=== PATIENT | male | born 1935 | race Caucasian/White ===

== ENCOUNTER → 2016-04-18 | Outpatient (CLI) | payer OTHER | LOC: MMPC 11:11 | PROVIDERS: ATTEND Internal Medicine | DX: J44.9 Chronic obstructive pulmonary disease, unspecified (principal); I73.9 Peripheral vascular disease, unspecified; Z12.5 Encounter for screening for malignant neoplasm of prostate; L57.0 Actinic keratosis; Z02.89 Encounter for other administrative examinations | CPT/HCPCS: 17000 ×2; 17003 ×2; 99214; G0463 ==

== ENCOUNTER → 2016-06-27 | Outpatient (CLI) | payer OTHER ==
[2016-06-27 09:47] LABS: BASOPHILS # (AUTO) 0.04 10*3/UL; BASOPHILS % (AUTO) 0.5 % (0-1); EOSINOPHILS # (AUTO) 0.27 10*3/UL; EOSINOPHILS % (AUTO) 3.2 % (0-8); HEMATOCRIT 50.7 % (42.0-52.0); HEMOGLOBIN 16.7 g/dL (14.0-18.0); LYMPHOCYTES # (AUTO) 1.13 10*3/uL; MEAN CORPUSCULAR HEMOGLOBIN 31.3 PG (27-31); MEAN CORPUSCULAR HGB CONC 32.9 g/dL (33-37); MEAN CORPUSCULAR VOLUME 95.1 FL (80-90); MEAN PLATELET VOLUME 11.3 FL (7.4-12.2); MONOCYTES # (AUTO) 0.85 10*3/UL (0.3-0.8); MONOCYTES % (AUTO) 10.2 % (5-15); NEUTROPHILS # (AUTO) 6.01 10*3/UL; NEUTROPHILS % (AUTO) 72.3 % (50-80); RED BLOOD COUNT 5.33 10^6/uL (4.70-6.10)
[2016-06-27 09:53] LABS: BUN/CREATININE RATIO 28.75 (6-20); CALCIUM 9.5 mg/dL (8.7-10.7); CHOL/HDL RATIO 3.9 RATIO (0-4.0); LDL CHOLESTEROL,CALCULATED 133.2 mg/dL; SERUM ALBUMIN 4.2 g/dL (3.5-4.8)
[2016-06-27 09:54] LABS: PLATELET MORPHOLOGY COMMENT NORMAL MORPHOLOGY (NORM); RBC MORPHOLOGY COMMENT NORMAL MORPHOLOGY (NORM); WBC MORPHOLOGY COMMENT NORMAL MORPHOLOGY (NORM)
== END ==
LOC: LAB 09:23
PROVIDERS: ATTEND Internal Medicine
DX: I73.9 Peripheral vascular disease, unspecified (principal); J44.9 Chronic obstructive pulmonary disease, unspecified; K21.9 Gastro-esophageal reflux disease without esophagitis; Z12.5 Encounter for screening for malignant neoplasm of prostate
CPT/HCPCS: 36415; 80053; 80061; 84443; 85025; G0103

== ENCOUNTER 2016-07-09 14:31 | Inpatient (IN) | payer OTHER ==
[2016-07-09] MEDS ORDERED: FUROSEMIDE 10 MG/1 ML - 4 ML IVP ONE (14:44)
[2016-07-09] MEDS: NORMAL SALINE 10 ML SYRINGE FLUSH IVP PRN ×2 (14:45→15:36)
--- NOTE | 2016-07-09 14:50 | PDOC ---
Dyspnea HPI - General Chief Complaint: Respiratory Complaint Stated Complaint: SHORTNESS OF BREATH Date Seen by Provider: 07/09/16 Time Seen by Provider: 14:46 - History of Present Illness Initial Comments: Patient's very nice 81-year-old gentleman who has unfortunately been having increasing shortness of breath and some dyspnea over last week or 2 ends up presenting to the urgent care today had initial evaluation which included some labs and chest x-ray and EKG. EKG shows an old AL at some point and chest x- ray shows new onset cardiomegaly and CHF with a possible infiltrate. Remainder of blood work is consistent with a new diagnosis of CHF given a BNP of over 800. He also has elevated d-dimer as well. He was sent here to the emergency department for evaluation of these issues. - Patient Home Medications Home Medications: Home Medications Oxygen (O2) 1 l INH BEDTIME #3 unit 08/05/13 Hydrocodone Bit/Acetaminophen [[place] 7.5-325 Tablet] 1 tab PO Q4HWA PRN #60 tab 04/18/16 Levalbuterol Tartrate [Xopenex Hfa] 2 puff INH Q4-6H PRN #1 inh 04/18/16 Umeclidinium [place] [Incruse Ellipta] 62.5 mcg INH QD #3 inhaler 04/18/16 Calcium Carbonate/Vitamin D3 [Calcium 600-Vit D3 800 Tab] 1 cap PO DAILY Fluticasone/Salmeterol [Advair 500-50 Diskus] 1 puff INH DAILY 07/09/16 - Patient Allergies Allergies/Adverse Reactions: Allergies Allergy/AdvReac Type Severity Reaction Status Date / Time No Known Allergies Allergy Verified 07/09/16 14:46 Past Medical History - heen HEENT History: Cataracts, Deaf, Other (please comment) Additional HEENT History: deaf right ear, WEARS GLASSES Cardiovascular History: Denies History Respiratory History: COPD, Sleep Apnea, Home Oxygen Use Additional Respiratory History: RIGHT LUNG CA. 3L NIGHT Genitourinary History: Kidney Stones Endocrine History: Denies History Musculoskeletal History: Arthritis, Back Pain, Back Injury, Muscle Weakness, Limited ROM, Joint Pain, Osteoarthritis, Other (please comment) Prosthesis or Implant: No Additional Musculoskeletal History: spinal fusion 10-16-11 and 10-18-11 Neurological History: Denies History, Other (please comment) Additional Neurological History: DECREASED SENSATION TO LEFT LEG DUE TO MAJOR BACK SURGERY Blood Disorders: Denies History Psychiatric History: Denies History History of Sexually Transmitted Diseases: No Cancer History: Lung, Other (please comment) Cancer Treatment / Date(s) of Treatment: chemo and radiation of rt lung 10 YEARS AGO, radiation of lip History of MDRO: No History of Other Communicable Diseases: No Alcohol Use: Occasionally Substance Use Type: None Previous Surgical History: Yes Type / Date of Surgery: RIGHT TOTAL HIP/BACK X2/LIP EXCISION +CA/ SKIN ABOVE LEFT EYE EXCISION +CA/APPY Anesthesia Reactions: No Malignant Hyperthermia: No Significant Family History: Cancer Past Medical History Reviewed: Reviewed - No Changes ROS - Limitations ROS Limitations: No Limitations [place]: REPORTS: Denies Symptoms Neurological: REPORTS: Denies Neuro Symptoms Gastrointestinal: REPORTS: Denies GI Symptoms Musculoskeletal: REPORTS: Denies MS Symptoms Dyspnea Physical Exam - General Appearance General Appearance: REPORTS: Alert, Cooperative, No Acute Distress - HEENT HEENT: POSITIVE: Head Inspection Nml - Neck Neck: REPORTS: Normal Inspection - Respiratory Respiratory: REPORTS: Other (Bilateral crackles) - Cardiovascular Cardiovascular: REPORTS: Regular Rate and Rhythm, Heart Sounds Normal - Abdomen Abdomen: Soft: (All Quadrants), Normal Bowel Sounds: (All Quadrants), Denies Tenderness: (All Quadrants) - Skin Skin: REPORTS: Intact, Normal For Race - Extremities Additional Extremities Details: Mild bilateral lower extremity edema - Neurological / Psychological Neurological: POSITIVE: Affect Apporpriate, Oriented X3 Dyspnea Progress - Results Reviewed by me Xrays/CTs/US Reviewed by me: Yes Radiology Findings: New-onset congestive heart failure with cardiomegaly also some bibasilar possible pneumonia and a right-sided spiculated mass likely cancerous. Lab Results Reviewed: Yes Lab Results:: Labs show an elevated BNP - Patient's Progress MDM / ED Course: This patient has elevated BNP also new cardiomegaly and pulmonary edema. This really fits the picture for acute congestive heart failure. He does not have evidence of pulmonary embolism. I have discussed with the patient and with the attending hospitalist that he does have a new cancerous mass in his right chest patient will plan to see his oncologist at interval for this. He also has some changes in the bilateral bases consistent with a pneumonia versus atelectasis or scarring. He does not have fever has not had increased sputum production or cough likely not an acute pneumonia. Will defer to hospitalist as to whether or not antibiotics and cultures are desired. Patient Care Time - Estimated PCT Patient Care Time (In Minutes): 40 Vital Signs - Recent Vital Signs Vital Signs: Vital Signs (Last 8 hours) Temp Pulse Resp BP Pulse Ox 07/09/16 14:49 98.6 F 111 H 20 144/81 73 Discharge Clinical Impression: Lung mass Acute CHF Qualifiers: Congestive heart failure type: unspecified congestive heart failure type Qualifier Code: (I50.9) Heart failure, unspecified Discharge Disposition: Admit to Inpatient Condition: Fair Follow Up With: NAVJOT MONTENEGRO [Primary Care Provider] - Date Decision to Admit to Inpatient: 07/09/16 Time Decision to Admit to Inpatient: 16:32
--- NOTE | 2016-07-09 16:31 | DI ---
CT ANGIOGRAM OF THE CHEST, 07/09/2016 2:43 PM : Clinical History: Shortness of breath. Elevated D-dimer test. Previous Exam: 12/10/2007. Scans are performed from the base of the neck to the lower lung bases following IV administration of 65 mL of Isovue 300. Proprietary automated bolus tracking software was not used to verify the timing of the injection. The base of the neck and thoracic inlet are normal. There are no abnormal axillary, supraclavicular, mediastinal, or hilar nodes. There is cardiomegaly with right heart dilatation. Calcifications are pr esent in the aortic valve. Coronary artery calcifications are present in the proximal and middle thir ds of the LAD, sterile the right coronary artery, and the proximal portion of the left circumflex art darlin. There is marked pulmonary arterial hypertension without evidence of pulmonary embolism or pulmon grant embolism with infarction. There is extensive bullous emphysema and there is marked increased in t he amount of pulmonary vessels in spite of emphysema and this would be consistent with CHF. Interstit ial Malvin A and the Malvin B lines are present in these can either be secondary to acute CHF or more likely a combination of CHF and underlying chronic interstitial pulmonary fibrosis. In the anterior segment of the right upper lobe is a 25 x 30 x 30 mm noncalcified bilobed spiculated lesion consisten t with carcinoma. This is new since the previous exam. There are bilateral lower lobe infiltrates wit h bronchiectasis and this is consistent with chronic aspiration pneumonia. Both adrenal glands and th e spleen as well as the visualized portions of the liver and pancreas are normal. This patient has un dergone extensive spine surgery involving the lower thoracic spine and the lumbar spine. READIN. There is pulmonary arterial hypertension without evidence of pulmonary embolism or pulmonary embo lism with infarction. 2. There is marked increased numbers of pulmonary vessels in this patient may have CHF with acute co r pulmonale. 3. There is a new 25 x 30 x 30 mm spiculated noncalcified bilobed lesion in the anterior segment of the right upper lobe consistent with carcinoma. 4. Bilateral lower lobe infiltrates with bronchiectasis consistent with chronic aspiration pneumonia . 5. Extensive bullous emphysema with Malvin A and Malvin B lines. These interstitial lines are probab ly secondary to a combination of chronic interstitial pulmonary fibrosis with acute CHF.
--- NOTE | 2016-07-09 17:06 | PDOC ---
History and Physical - History of Present Illness History of Present Illness: This very nice 81-year-old gentleman with past medical history of COPD and remote lung cancer and years ago he had radiation and chemotherapy heavy smoker presented to the urgent care clinic with shortness of breath which has been getting worse over the last 2 days also has increased sleep and decreased appetite after initial evaluation he was sent to the ER where he was diagnosed with the acute CHF, cor pulmonale, and bilateral lower lobe infiltrates on CT scan but no pulmonary embolus discussed the case with the family members and patient he denies chest pain nausea or vomiting Past Medical History Medical History: Cataracts, Deaf,deaf right ear, WEARS GLASSES,COPD, Sleep Apnea , Home Oxygen. Arthritis, Back Pain, Back Injury, Muscle Weakness, Limited ROM , Joint Pain, chemo and radiation of rt lung 10 YEARS AGO,. . Surgical History: DECREASED SENSATION TO LEFT LEG DUE TO MAJOR BACK SURGERYspinal fusion 10-16-11 and 10-18-11, Tobacco Use: Former Smoker Substance Use Type: None Medication / Allergies Home Medications: Home Medications Medication Instructions Recorded Confirmed Type Oxygen (O2) 1 l INH BEDTIME #3 unit 08/05/07/09/16 History Hydrocodone Bit/Acetaminophen 1 tab PO Q4HWA PRN #60 tab 04/18/16 07/09/16 Clinic [[place] 7.5-325 Tablet] Levalbuterol Tartrate [Xopenex Hfa] 2 puff INH Q4-6H PRN #1 inh 04/18/16 Clinic Umeclidinium [place] [Incruse 62.5 mcg INH QD #3 inhaler 04/18/16 07/09/16 Clinic Ellipta] Calcium Carbonate/Vitamin D3 1 cap PO DAILY 07/09/16 07/09/16 History [Calcium 600-Vit D3 800 Tab] Fluticasone/Salmeterol [Advair 1 puff INH DAILY 07/09/16 07/09/16 History 500-50 Diskus] Allergies/Adverse Reactions: Allergies Allergy/AdvReac Type Severity Reaction Status Date / Time No Known Allergies Allergy Verified 07/09/16 17:17 Review of Systems - Review of Systems All Systems: Reviewed & No Additional Complaints Except as Stated - Respiratory Respiratory: REPORTS: Cough, Dyspnea with Exertion - Cardiovascular Cardiovascular: REPORTS: Edema, Orthopnea. DENIES: Chest Pain - Gastrointestinal Gastrointestinal / Abdominal: DENIES: Negative System Review, Nausea, Vomiting, Diarrhea, Constipation, Abdominal Pain, Bloody Stool, Poor Appetite, Heartburn, Regurgitation, Bloating, Lactose Intolerance, Melena, Bright Red Blood Per Rectum, Other, See HPI Exam - General General Appearance: POSITIVE: No Acute Distress, Cooperative - Head Head Exam: POSITIVE: Normal Inspection, Normocephalic, Atraumatic - Respiratory Respiratory Exam: POSITIVE: Clear to Auscultation - Bilaterally, Breathing Non Labored, Normal To Percussion, Decreased Breath Sounds, Crackles - Cardiovascular Cardiovascular Exam: POSITIVE: RRR, No Murmur, No Clicks, No Gallops - GI/Abdominal GI/Abdominal Exam: POSITIVE: Non Tender, Non Distended, Soft - Extremities Extremities Exam: POSITIVE: No Clubbing Present, No Edema Present, No Cyanosis Present, +1 Edema - Back Back Exam: POSITIVE: Normal Inspection - Neurological Neurological Exam: POSITIVE: Alert, Oriented x 3, CN II-XII Intact, No Facial Droop, Speech Intact / Clear, Moves All Extremities Equally - Psychiatric Psychiatric Exam: POSITIVE: Normal Affect - Integumentary Integumentary Exam: POSITIVE: Normal Color Assessment and Plan - Patient Problems (1) Acute CHF Current Visit: Yes Status: Acute Qualifiers: Congestive heart failure type: unspecified congestive heart failure type Qualifier Code(s): (I50.9) Heart failure, unspecified (2) Lung mass Current Visit: Yes Status: Acute (3) Pneumonia Current Visit: Yes Status: Acute (4) Cor pulmonale Current Visit: Yes Status: Acute (5) Pulmonary hypertension Current Visit: Yes Status: Acute - Assessment / Plan Additional Assessment/Plan Details: #1 acute CHF most likely cor pulmonale with right-sided heart pressures as per CT scan. Negative troponin elevated BNP diuresed with IV Lasix 40 IV twice a day he did receive 1 dose in the ER will insert Cheung catheter for acute output echo in a.m. #2 bilateral pulmonary infiltrates consistent with an aspiration pneumonia as called it we will get a swallow study in a row he does have a left shift will treat with ceftriaxone and Clinda #[address] most likely a carcinoma of the lung we will discuss further what he wants done with this mass most likely will need to be biopsied #4. co PD exacerbation already on home oxygen 3 L at night #5 DVT prophylaxis with Lovenox 40 subcutaneous daily Photo / Body Diagrams - Uploaded Photos Uploaded Photos:
[2016-07-09] MEDS ORDERED: NORMAL SALINE 10 ML SYRINGE FLUSH IVP PRN (17:16)
[2016-07-09] MEDS ORDERED: Clindamycin 900mg (Premix) 900 MG in Dextrose 1 BAG IV ONE (17:16)
[2016-07-09] MEDS ORDERED: LIDOCAINE W/ SODIUM BICARB 0.5 ML SYR SUBD PRN (17:16)
--- NOTE | 2016-07-09 17:48 | EKG ---
[address] [place] [id number] Measurements Intervals [place] Rate: 88 P: 75 [place]: 170 QRS: 266 QRSD: 166 T: 58 QT: 403 QTc: 448 Interpretive Statements SINUS RHYTHM MARKED RIGHT AXIS DEVIATION ,POSSIBLE RVH RIGHT BUNDLE BRANCH BLOCK Compared to ECG 07/09/2016 13:47:16 Right-axis deviation now present Myocardial infarct finding no longer present Electronically Signed On 07-09-16 20:33:38 MDT by Brayan Neely [id number]
[2016-07-09] MEDS: cefTRIAXone Inj 2 GM in Sodium Chloride 0.9% 100 ML IV SCH (19:15)
[2016-07-10 05:34] LABS: BASOPHILS # (AUTO) 0.08 10*3/UL; EOSINOPHILS # (AUTO) 0.25 10*3/UL; EOSINOPHILS % (AUTO) 3.1 % (0-8); HEMATOCRIT 43.8 % (42.0-52.0); HEMOGLOBIN 14.4 g/dL (14.0-18.0); LYMPHOCYTES # (AUTO) 0.82 10*3/uL; MEAN CORPUSCULAR HEMOGLOBIN 31.4 PG (27-31); MEAN CORPUSCULAR HGB CONC 32.9 g/dL (33-37); MEAN CORPUSCULAR VOLUME 95.4 FL (80-90); MEAN PLATELET VOLUME 10.8 FL (7.4-12.2); MONOCYTES # (AUTO) 0.99 10*3/UL (0.3-0.8); MONOCYTES % (AUTO) 12.1 % (5-15); NEUTROPHILS # (AUTO) 5.94 10*3/UL; NEUTROPHILS % (AUTO) 72.6 % (50-80); RED BLOOD COUNT 4.59 10^6/uL (4.70-6.10)
[2016-07-10 05:35] LABS: BUN/CREATININE RATIO 28.57 (6-20); CALCIUM 8.7 mg/dL (8.7-10.7); PHOSPHORUS 4.1 mg/dl (2.4-4.3); SERUM ALBUMIN 3.2 g/dL (3.5-4.8)
[2016-07-10 05:36] LABS: PLATELET MORPHOLOGY COMMENT NORMAL MORPHOLOGY (NORM); RBC MORPHOLOGY COMMENT NORMAL MORPHOLOGY (NORM); WBC MORPHOLOGY COMMENT NORMAL MORPHOLOGY (NORM)
[2016-07-10] MEDS: FLUTICASONE/SALMETEROL 500/50 UD INHALER INH SCH (07:02)
[2016-07-10] MEDS ORDERED: FUROSEMIDE 10 MG/1 ML - 2 ML VIAL IV SCH (09:00)
[2016-07-10] MEDS: ENOXAPARIN SODIUM 40 MG/0.4 ML SYRINGE SUBCUT SCH (10:03)
[2016-07-10] MEDS: LISINOPRIL 5 MG TABLET PO SCH (10:04)
--- NOTE | 2016-07-10 10:59 | PDOC(PROG) ---
Date and Time of Service: 07/10/2016, 1055 Interval History: No chest pain. No shortness of breath. States that he feels about 50% better than on admission. He is not interested in surgical therapy for lung cancer, but be interested in chemotherapy or radiation or combination thereof, depending on opinions after his pneumonia recovers. He does live in [place] , so he would be interested in trying to arrange an appointment here in [place]. Objective : Data - Labs CBC and BMP: 07/10/16 04:50 07/10/16 04:50 Labs - Last 24 Hours: Laboratory Results 07/09/16 07/10/16 Range/Units 17:28 04:50 WBC 8.18 (4.8-10.8) 10^3/uL RBC 4.59 L (4.70-6.10) 10^6/uL Hgb 14.4 (14.0-18.0) g/dL Hct 43.8 (42.0-52.0) % MCV 95.4 H (80-90) FL MCH 31.4 H (27-31) PG MCHC 32.9 L (33-37) g/dL RDW Std Deviation 48.9 (39-50) fL RDW Coeff of Terri 14.4 (11.5-14.5) % Plt Count 250 (140-350) 10*3/uL MPV 10.8 (7.4-12.2) FL Immature Gran % (Auto) 1.2 (0-5) % Neut % (Auto) 72.6 (50-80) % Lymph % (Auto) 10.0 (10-50) % [place] % (Auto) 12.1 (5-15) % Eos % (Auto) 3.1 (0-8) % Baso % (Auto) 1.0 (0-1) % Immature Gran # (Auto) 0.10 10*3/UL Neut # (Auto) 5.94 10*3/UL Lymph # (Auto) 0.82 10*3/uL [place] # (Auto) 0.99 H (0.3-0.8) 10*3/UL Eos # (Auto) 0.25 10*3/UL Baso # (Auto) 0.08 10*3/UL WBC Morphology Comment Normal morphology (NORM) Plt Morphology Comment Normal morphology (NORM) RBC Morph Comment Normal morphology (NORM) Sodium 139 (135-145) meq/L Potassium 4.0 (3.8-5.2) meq/L Chloride 102 (98-112) meq/L Carbon Dioxide 28 (23-33) meq/L Anion Gap 9 (5-20) BUN 20 (7-22) mg/dL Creatinine 0.7 (0.70-1.50) mg/dL Estimated GFR (>60 ml/min/1.73m(2)) BUN/Creatinine Ratio 28.57 H (6-20) Glucose 89 (78-110) mg/dL Calculated Osmolality 289.0 (267-292) mOsm/kg Calcium 8.7 (8.7-10.7) mg/dL Phosphorus 4.1 (2.4-4.3) mg/dl Magnesium 2.0 (1.6-2.4) mg/dL Total Bilirubin 0.9 (0.3-1.2) mg/dL AST 29 (21-57) IU/L ALT 23 (21-72) IU/L Alkaline Phosphatase 89 (38-126) IU/L Troponin I 0.022 (< 0.040) ng/mL Total Protein 6.5 (6.1-8.0) g/dL Albumin 3.2 L (3.5-4.8) g/dL Globulin 3.3 (2.50-4.10) g/dL Albumin/Globulin Ratio 0.90 L (1.3-2.0) mg/g Objective : Exam - General General Appearance: No Acute Distress, Cooperative Additional General Exam Details: Vital Signs - Last Taken Temperature 98 F 07/10/16 07:39 Pulse Rate 89 07/10/16 07:39 Respiratory Rate 18 07/10/16 07:39 Blood Pressure 142/66 07/10/16 07:39 Pulse Ox 91 07/10/16 07:39 Currently on 3-4 L per nasal cannula. States he is on oxygen at home at night TIME. - Head Head Exam: Normal Inspection, Normocephalic, Atraumatic - Eye Eye Exam: No Scleral Icterus - ENT ENT Exam: Mucous Membranes Moist - Respiratory Respiratory Exam: Breathing Non Labored, Decreased Breath Sounds, Crackles ( Left lower base) - Cardiovascular Cardiovascular Exam: RRR, No Murmur, No Clicks, No Gallops, No Rubs, No JVD - GI/Abdominal GI/Abdominal Exam: Normal Bowel Sounds, Non Tender, Non Distended, Soft - Rectal Rectal Exam: Deferred - External Exam: Deferred Exam: Deferred - Extremities Extremities Exam: No Clubbing Present, No Edema Present, No Cyanosis Present - Neurological Neurological Exam: Alert, Oriented x 3, No Facial Droop, Speech Intact / Clear, Moves All Extremities Equally - Psychiatric Psychiatric Exam: Normal Affect, Normal Mood Assessment and Plan - Patient Problems (1) Pneumonia Current Visit: Yes Status: Acute Qualifiers: Pneumonia type: aspiration pneumonia Aspiration pneumonia type: unspecified Laterality: bilateral Lung location: lower lobe of lung Qualified Description: Aspiration pneumonia of both lower lobes, unspecified aspiration pneumonia type Qualifier Code(s): (J69.0) Pneumonitis due to inhalation of food and vomit (2) Lung mass Current Visit: Yes Status: Acute (3) Pulmonary hypertension Current Visit: Yes Status: Acute (4) COPD (chronic obstructive pulmonary disease) Current Visit: Yes Status: Acute Qualifiers: 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 - Assessment / Plan Additional Assessment/Plan Details: Continue antibiotics, today being day #2. Rocephin and clindamycin, not ready to go to by mouth yet Treat for COPD exacerbation as well. Stop telemetry monitoring. In terms of the patient's lung mass that looks suspicious for cancer, we will get him set up with oncology here in [facility], as [place] away from [place]. Oxygen probably 24 7 leaving the hospital as well. Discussed with family in depth, all questions answered, and everyone agreed with the plan. Photo / Body Diagrams - Uploaded Photos Uploaded Photos:
[2016-07-10] MEDS: FUROSEMIDE 20 MG TABLET PO SCH (13:34)
--- NOTE | 2016-07-10 15:51 | DI ---
CT ABDOMEN SCAN WITH IV CONTRAST, 07/10/2016 7:00 AM : Clinical History: Possible lung carcinoma. Previous Exam: A CT angiogram of the aorta with runoff dated 06/16/2012. Scans are performed from the lower lung bases through the liver and kidneys with IV contrast. 75 ml o f Isovue 300 was injected IV. No oral or rectal contrast was ordered. There is a left lower lobe infiltrate representing pneumonia. Bullae are present indicating bullous e mphysema. The liver is normal. The gallbladder is grossly normal. There is no abnormality of the sple en, pancreas, and adrenal glands. Both kidneys are normal in size, shape, position and contour. There is no hydronephrosis or hydroureter. No renal or ureteral calculi are present. There are no abnormal retrocrural or periaortic nodes. No ascites is present. READIN. Normal CT abdomen scan. 2. Left lower lobe pneumonia. CT PELVIS SCAN WITH IV CONTRAST, 07/10/2016 7:00 AM: Clinical History: See above. Previous Exam: A CT angiogram of the aorta with runoff dated 06/16/2012. Scans are performed from just superior to the umbilicus to the symphysis pubis with IV contrast. This is the same bolus of contrast used for the CT scans of the abdomen. Scans through the lower abdomen and pelvis show no masses or abnormal fluid collections. There is no adenopathy. The appendix is not visualized with certainty but there is no inflammatory mass either in the cecal tip or in the right lower quadrant. The small bowel, terminal ileum, and ileocecal valve a re normal. The colon is also normal. There is a small umbilical hernia through which only mesenteric fat has herniated. There is prostatic hypertrophy. Extensive artifacts are generated by hardware rela loretta to previous fusions between the lower thoracic spine extending to the sacrum. READING: Normal CT scan of the pelvis.
[2016-07-10] MEDS ORDERED: Pneumococcal Vacc 13 Syringe 0.5 ML DISP.SYRIN IM SCH (16:45)
[2016-07-10] MEDS: cefTRIAXone Inj 2 GM in Sodium Chloride 0.9% 100 ML IV SCH (17:04)
[2016-07-11 05:00] LABS: HEMATOCRIT 49.2 % (42.0-52.0); HEMOGLOBIN 16.5 g/dL (14.0-18.0); MEAN CORPUSCULAR HEMOGLOBIN 31.9 PG (27-31); MEAN CORPUSCULAR HGB CONC 33.5 g/dL (33-37); MEAN PLATELET VOLUME 10.7 FL (7.4-12.2); RED BLOOD COUNT 5.18 10^6/uL (4.70-6.10)
[2016-07-11 05:05] LABS: BUN/CREATININE RATIO 28.75 (6-20); CALCIUM 9.3 mg/dL (8.7-10.7); MAGNESIUM 2.1 mg/dL (1.6-2.4)
[2016-07-11 05:42] LABS: BAND NEUTROPHILS % 1 % (0-10); BASOPHILS % (MANUAL) 0 % (0-1); EOSINOPHILS % (MANUAL) 0 % (0-8); LYMPHOCYTES % (MANUAL) 9 % (10-50); MONOCYTES % (MANUAL) 2 % (0-12); NEUTROPHILS % (MANUAL) 88 % (50-80); PLATELET MORPHOLOGY COMMENT NORMAL MORPHOLOGY (NORM); RBC MORPHOLOGY COMMENT NORMAL MORPHOLOGY (NORM); WBC MORPHOLOGY COMMENT NORMAL MORPHOLOGY (NORM)
[2016-07-11] MEDS: FLUTICASONE/SALMETEROL 500/50 UD INHALER INH SCH (06:51)
[2016-07-11] MEDS: FUROSEMIDE 20 MG TABLET PO SCH ×2 (07:00→13:11)
[2016-07-11] MEDS: ENOXAPARIN SODIUM 40 MG/0.4 ML SYRINGE SUBCUT SCH (08:01)
[2016-07-11] MEDS: LISINOPRIL 5 MG TABLET PO SCH (08:02)
[2016-07-11] MEDS ORDERED: Loperamide Tab 2 MG TABLET PO PRN (14:54)
--- NOTE | 2016-07-11 14:58 | PDOC(PROG) ---
Date and Time of Service: 07/11/2016, 1455 Interval History: Overall, patient feels better. Less cough. No shortness breath. He did notably cough a few times on my exam however. He notes with his daughter and granddaughter in the room that he sometimes has difficulty swallowing, particularly when there is proper, salt, or increased sugar content to his meals. He states this has been going on for last 4-5 years. No swallowing evaluation to this point. No chest pain. No nausea or vomiting. No other dysphasia symptoms. Objective : Data - Labs CBC and BMP: 07/11/16 04:08 07/11/16 04:08 Labs - Last 24 Hours: Laboratory Results 07/11/16 Range/Units 04:08 WBC 11.64 H (4.8-10.8) 10^3/uL RBC 5.18 (4.70-6.10) 10^6/uL Hgb 16.5 (14.0-18.0) g/dL Hct 49.2 (42.0-52.0) % MCV 95.0 H (80-90) FL MCH 31.9 H (27-31) PG MCHC 33.5 (33-37) g/dL RDW Std Deviation 49.6 (39-50) fL RDW Coeff of Terri 14.4 (11.5-14.5) % Plt Count 295 (140-350) 10*3/uL MPV 10.7 (7.4-12.2) FL Neutrophils % (Manual) 88 H (50-80) % Band Neutrophils % 1 (0-10) % Lymphocytes % (Manual) 9 L (10-50) % Monocytes % (Manual) 2 (0-12) % Eosinophils % (Manual) 0 (0-8) % Basophils % (Manual) 0 (0-1) % Metamyelocytes % Not Reportable Myelocytes % Not Reportable Promyelocytes % Not Reportable Blast Cells Not Reportable WBC Morphology Comment Normal morphology (NORM) Plt Morphology Comment Normal morphology (NORM) RBC Morph Comment Normal morphology (NORM) Sodium 142 (135-145) meq/L Potassium 3.8 (3.8-5.2) meq/L Chloride 104 (98-112) meq/L Carbon Dioxide 28 (23-33) meq/L Anion Gap 10 (5-20) BUN 23 H (7-22) mg/dL Creatinine 0.8 (0.70-1.50) mg/dL Estimated GFR (>60 ml/min/1.73m(2)) BUN/Creatinine Ratio 28.75 H (6-20) Glucose 99 (78-110) mg/dL Calculated Osmolality 297.0 H (267-292) mOsm/kg Calcium 9.3 (8.7-10.7) mg/dL Magnesium 2.1 (1.6-2.4) mg/dL Objective : Exam - General General Appearance: No Acute Distress, Cooperative Additional General Exam Details: Vital Signs - Last Taken Temperature 97.7 F 07/11/16 12:37 Pulse Rate 91 07/11/16 12:37 Respiratory Rate 18 07/11/16 12:37 Blood Pressure 117/67 07/11/16 12:37 Pulse Ox 96 07/11/16 12:37 - Eye Eye Exam: No Scleral Icterus - Respiratory Respiratory Exam: Breathing Non Labored, Normal to Percussion and Palpation, Crackles - Cardiovascular Cardiovascular Exam: RRR, No Murmur, No Clicks, No Gallops, No Rubs, JVD - GI/Abdominal GI/Abdominal Exam: Normal Bowel Sounds, Non Tender, Non Distended, Soft - Extremities Extremities Exam: No Clubbing Present, No Edema Present, No Cyanosis Present - Neurological Neurological Exam: Alert, Oriented x 3, No Facial Droop, Speech Intact / Clear, Moves All Extremities Equally Assessment and Plan - Patient Problems (1) Pneumonia Current Visit: Yes Status: Acute Qualifiers: Pneumonia type: aspiration pneumonia Aspiration pneumonia type: unspecified Laterality: bilateral Lung location: lower lobe of lung Qualified Description: Aspiration pneumonia of both lower lobes, unspecified aspiration pneumonia type Qualifier Code(s): (J69.0) Pneumonitis due to inhalation of food and vomit (2) Lung mass Current Visit: Yes Status: Acute (3) Pulmonary hypertension Current Visit: Yes Status: Acute (4) COPD (chronic obstructive pulmonary disease) Current Visit: Yes Status: Acute Qualifiers: 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 Given improvements, may shorten course to 5 days of therapy. Check stool for C. difficile as patient does have some diarrhea. Swallow evaluation tomorrow. If all goes well, hopefully discharge tomorrow to finish course of antibiotics and get the patient follow-up with oncology for the lung mass. Photo / Body Diagrams - Uploaded Photos Uploaded Photos:
[2016-07-11] MEDS: Amoxicill/Clav 875/125mg Tab 1 TAB TAB PO SCH (20:02)
[2016-07-12] MEDS: FLUTICASONE/SALMETEROL 500/50 UD INHALER INH SCH (06:47)
[2016-07-12] MEDS ORDERED: FUROSEMIDE 20 MG TABLET PO SCH (07:00)
[2016-07-12] MEDS: ENOXAPARIN SODIUM 40 MG/0.4 ML SYRINGE SUBCUT SCH (08:01)
[2016-07-12] MEDS: Amoxicill/Clav 875/125mg Tab 1 TAB TAB PO SCH (08:01)
[2016-07-12] MEDS: LISINOPRIL 5 MG TABLET PO SCH (09:36)
[2016-07-12 09:47] VITALS: RESP 18; TEMP 97.1
--- NOTE | 2016-07-12 12:44 | DI ---
MODIFIED ESOPHAGRAM, 07/12/2016 7:00 AM : Clinical History: Aspiration pneumonia. Previous Exam: None at this facility. A "time out" session was performed to verify the patient's name and date of prior to initiating this procedure. This examination is performed in conjunction with Occupational Therapy to evaluate t he patient's swallowing function. Different texture grades of barium impregnated substances were offe red to the patient, ranging from thin liquids to thick liquids to solids. Please see the occupational therapist's report. Deglutition is normal and the esophagus strips well. There is no evidence of aspiration while swallow ing. There is no excessive pooling of material in the pyriform sinuses. There is no Zenker's divertic ulum. Spot films of the esophagus are show a hiatal hernia manifested by a Schatzki's ring. Spot film s of the distal antrum, pyloric channel, and duodenal bulb are normal. There is no reflux with the wa ter siphon test. READIN. Normal esophagram. No aspiration was observed while swallowing different textures of barium impre gnated substances ranging from thin liquids to solid food. 2. There is a hiatal hernia but there was no reflux with the water siphon test.
--- NOTE | 2016-07-12 14:24 | DCSUMMARY ---
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 Spiculated. Hospital Course: This very pleasant 81-year-old male that was admitted with cough and shortness breath and found to have pneumonia along with possible aspiration components. Swallow evaluation was done and it showed that he was not aspirating. He probably does have some decreased pharyngeal swallow, and it was recommended that he do a chopped consistency and swallow twice in between bites. In addition, we kept him on Rocephin and clindamycin initially, but did simplify therapy to Augmentin. He is on day 3 of a 5 day course of therapy. The patient is responded very well and quickly to antibiotic therapy so we'll limit that therapy to 5 days. We were able to have [facility] get information on the hospital stay and we've requested an evaluation of the lung mass, and Dr. Nunn will see the patient, probably here in [place] initially at possible. It was thought that the patient might have congestive heart failure, but the ejection fractions fairly well preserved. It does appear that the patient has pulmonary hypertension. Today, no complaints of chest pain or shortness breath. Cough is present but better. No nausea or vomiting. The patient really would like to go home. I discussed the patient's I'll plan with him and his daughter and they agreed. Assessment and Plan: 1. As per discharge assessments noted 2. Disposition: Patient is discharged home. 3. Condition on discharge, stable and improved. 4. Diet: regular diet, but with dietary modifications noted above 5. Activities: resume normal activities 6. Follow-Up: 1. Primary care provider in one week 2. Oncology when possible to evaluate this lung mass. 7. Medications at the Time of Discharge: Home Medications Medication Instructions Recorded Confirmed Type Oxygen (O2) 1 l INH BEDTIME #3 unit 08/05/13 07/09/16 History Hydrocodone Bit/Acetaminophen 1 tab PO Q4HWA PRN #60 tab 04/18/16 07/09/16 Clinic [[place] 7.5-325 Tablet] Levalbuterol Tartrate [XOPENEX HFA] 2 puff INH Q4-6H PRN #1 inh 04/18/16 Clinic Umeclidinium [place] [Incruse 62.5 mcg INH QD #3 inhaler 04/18/16 07/09/16 Clinic Ellipta] Calcium Carbonate/Vitamin D3 1 cap PO DAILY 07/09/16 07/09/16 History [Calcium 600-Vit D3 800 Tab] Fluticasone/Salmeterol [Advair 1 puff INH DAILY 07/09/16 07/09/16 History 500-50 Diskus] Amoxicill/Clav 875/125mg 1 tab PO BID #4 tab 07/12/16 Rx [Augmentin 875/125mg] 8. Time, care, counseling and coordination of care for this discharge is greater than 30 minutes. Exam - Vitals Vital Signs: Vital Signs Vital Signs - Last Taken Temperature 97.1 F 07/12/16 13:00 Pulse Rate 103 H 07/12/16 13:00 Respiratory Rate 18 07/12/16 13:00 Blood Pressure 110/64 07/12/16 13:00 Pulse Ox 92 07/12/16 13:00 On 3 L per nasal cannula - General General Appearance: POSITIVE: No Acute Distress, Cooperative - Head Head Exam: POSITIVE: Atraumatic - Eye Eye Exam: POSITIVE: No Scleral Icterus - Respiratory Respiratory Exam: POSITIVE: Breathing Non Labored, Coarse Breath Sounds - Cardiovascular Cardiovascular Exam: POSITIVE: RRR, No Murmur, No Clicks, No Gallops, No Rubs, No JVD - GI/Abdominal GI/Abdominal Exam: POSITIVE: Normal Bowel Sounds, Non Tender, Non Distended, Soft - Extremities Extremities Exam: POSITIVE: No Edema Present, No Cyanosis Present - Neurological Neurological Exam: POSITIVE: Alert, Oriented x 3, No Facial Droop, Speech Intact / Clear, Moves All Extremities Equally Data Perinent Studies: Laboratory Results 07/09/16 07/10/16 07/11/16 Range/Units 17:28 04:50 04:08 WBC 8.18 11.64 H (4.8-10.8) 10^3/uL RBC 4.59 L 5.18 (4.70-6.10) 10^6/uL Hgb 14.4 16.5 (14.0-18.0) g/dL Hct 43.8 49.2 (42.0-52.0) % MCV 95.4 H 95.0 H (80-90) FL MCH 31.4 H 31.9 H (27-31) PG MCHC 32.9 L 33.5 (33-37) g/dL RDW Std Deviation 48.9 49.6 (39-50) fL RDW Coeff of Terri 14.4 14.4 (11.5-14.5) % Plt Count 250 295 (140-350) 10*3/uL MPV 10.8 10.7 (7.4-12.2) FL Immature Gran % (Auto) 1.2 (0-5) % Neut % (Auto) 72.6 (50-80) % Lymph % (Auto) 10.0 (10-50) % [place] % (Auto) 12.1 (5-15) % Eos % (Auto) 3.1 (0-8) % Baso % (Auto) 1.0 (0-1) % Immature Gran # (Auto) 0.10 10*3/UL Neut # (Auto) 5.94 10*3/UL Lymph # (Auto) 0.82 10*3/uL [place] # (Auto) 0.99 H (0.3-0.8) 10*3/UL Eos # (Auto) 0.25 10*3/UL Baso # (Auto) 0.08 10*3/UL Neutrophils % (Manual) 88 H (50-80) % Band Neutrophils % 1 (0-10) % Lymphocytes % (Manual) 9 L (10-50) % Monocytes % (Manual) 2 (0-12) % Eosinophils % (Manual) 0 (0-8) % Basophils % (Manual) 0 (0-1) % Metamyelocytes % Not Reportable Myelocytes % Not Reportable Promyelocytes % Not Reportable Blast Cells Not Reportable WBC Morphology Comment Normal morphology Normal morphology (NORM) Plt Morphology Comment Normal morphology Normal morphology (NORM) RBC Morph Comment Normal morphology Normal morphology (NORM) Sodium 139 142 (135-145) meq/L Potassium 4.0 3.8 (3.8-5.2) meq/L Chloride 102 104 (98-112) meq/L Carbon Dioxide 28 28 (23-33) meq/L Anion Gap 9 10 (5-20) BUN 20 23 H (7-22) mg/dL Creatinine 0.7 0.8 (0.70-1.50) mg/dL Estimated GFR (>60 ml/min/1.73m(2)) BUN/Creatinine Ratio 28.57 H 28.75 H (6-20) Glucose 89 99 (78-110) mg/dL Calculated Osmolality 289.0 297.0 H (267-292) mOsm/kg Calcium 8.7 9.3 (8.7-10.7) mg/dL Phosphorus 4.1 (2.4-4.3) mg/dl Magnesium 2.0 2.1 (1.6-2.4) mg/dL Total Bilirubin 0.9 (0.3-1.2) mg/dL AST 29 (21-57) IU/L ALT 23 (21-72) IU/L Alkaline Phosphatase 89 (38-126) IU/L Troponin I 0.022 (< 0.040) ng/mL NT-Pro-B Natriuret Pep 415 (0-450) PG/ML Total Protein 6.5 (6.1-8.0) g/dL Albumin 3.2 L (3.5-4.8) g/dL Globulin 3.3 (2.50-4.10) g/dL Albumin/Globulin Ratio 0.90 L (1.3-2.0) mg/g Patient Problems - Patient Problem List (1) Pneumonia Current Visit: Yes Status: Acute Qualifiers: Pneumonia type: aspiration pneumonia Aspiration pneumonia type: unspecified Laterality: bilateral Lung location: lower lobe of lung Qualified Description: Aspiration pneumonia of both lower lobes, unspecified aspiration pneumonia type Qualifier Code(s): (J69.0) Pneumonitis due to inhalation of food and vomit (2) Lung mass Current Visit: Yes Status: Acute (3) Pulmonary hypertension Current Visit: Yes Status: Acute (4) COPD (chronic obstructive pulmonary disease) Current Visit: Yes Status: Acute Qualifiers: 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
--- NOTE | 2016-07-16 12:41 | OTI REPORT ---
Thank you for the referral of MOLLY GARCÍA. He was seen on 07/12/16 for a modified barium swallow study. SUBJECTIVE: The patient is an 81-year-old male. PAST MEDICAL HISTORY: Past medical history can be found in the patient's medical record. OBJECTIVE FINDINGS: The patient was brought into the video fluoroscopy room. Dr. Allen was the attending radiologist. Today we started the patient in a lateral view. It was observed that the patient had good lip closure. We started the patient with a thin liquid and then moved to a regular food item including cut up ham, and then went back to a thin liquid in a lateral view. In an anterior view we used diced peaches as well as thin liquid after the diced peaches in the anterior view. It was observed throughout all of these liquid and bolus tasks that the patient had good lip closure and good chewing maneuvers. He had good AP transit time. He does not demonstrate pocketing or premature spillage. He has good tongue base retraction and does not demonstration stasis or coding. He has a good swallow reflex and no oral nasal regurgitation. He does however have a slight decrease in hyothyroid approximation and hyoid protraction. He had a slight decrease in laryngeal elevation; however, this is not affecting him functionally. He did not demonstrate signs of aspiration with any of the texture of liquids presented, and there was no penetration into the epiglottic area. He does however demonstrate slight decrease in pharyngeal squeeze. He does have a moderate amount of vallecular and piriformis pooling and demonstrates vallecular and piriformis residuals, especially with the first swallow. When asked to swallow a second time without a liquid or bolus presented, the patient was able to clear another 75% of the material available and with thin liquid, was able to demonstrate no pooling in the piriformis and vallecular area. The patient does demonstrate some pharyngeal weakness. He is able to protect his airway. Paired muscle groups: Laryngeal intrinsics Pharyngeal constrictors ASSESSMENT: The patient is not demonstrating signs of aspiration; however, he does have some light to moderate pharyngeal weakness. He is able to clear with two swallows and liquid. RECOMMENDATIONS: 1. The patient is to take one bite of food, take a double swallow, and follow with liquid throughout meals. 2. We discussed effortful swallows 10 times per meal, three times a day. The patient was able to demonstrate doing this appropriately. 3. The patient would benefit from a mechanical soft diet with thin liquids. INITIAL TREATMENT: Treatment today consisted of the modified barium swallow study. The patient then completed pharyngeal strengthening exercises including effortful swallows and going through the home program including recommendations and compensatory strategies that he will need to complete at home during meals. PENNY
== END 2016-07-12 15:51 | disposition home or self-care (01) | DRG 179 ==
LOC: ER 14:31 → MED/SURG 16:52
PROVIDERS: ADMIT Internal Medicine; ATTEND Internal Medicine
DX: J69.0 Pneumonitis due to inhalation of food and vomit (principal); I50.9 Heart failure, unspecified; R91.8 Other nonspecific abnormal finding of lung field; I27.2 Other secondary pulmonary hypertension; J43.1 Panlobular emphysema
CPT/HCPCS: 36415; 71275; 74177; 74220; 80048; 80053; 80069; 83735; 83880; 84484; 85007; 85025; 87493; 90670; 93005; 93010; 93306; 94640; 94761; 96374; 97530; 97750; 99284; J0696; J1650; J1940; J3490; J7050

== ENCOUNTER → 2016-07-09 | Outpatient (CLI) | payer OTHER ==
[2016-07-09 13:41] LABS: BASOPHILS # (AUTO) 0.04 10*3/UL; BASOPHILS % (AUTO) 0.4 % (0-1); EOSINOPHILS # (AUTO) 0.13 10*3/UL; EOSINOPHILS % (AUTO) 1.3 % (0-8); HEMATOCRIT 45.8 % (42.0-52.0); HEMOGLOBIN 14.8 g/dL (14.0-18.0); LYMPHOCYTES # (AUTO) 0.72 10*3/uL; MEAN CORPUSCULAR HEMOGLOBIN 31.2 PG (27-31); MEAN CORPUSCULAR HGB CONC 32.3 g/dL (33-37); MEAN CORPUSCULAR VOLUME 96.4 FL (80-90); MEAN PLATELET VOLUME 10.5 FL (7.4-12.2); MONOCYTES % (AUTO) 10.7 % (5-15); NEUTROPHILS # (AUTO) 8.25 10*3/UL; NEUTROPHILS % (AUTO) 79.9 % (50-80); RED BLOOD COUNT 4.75 10^6/uL (4.70-6.10)
[2016-07-09 13:42] LABS: PLATELET MORPHOLOGY COMMENT NORMAL MORPHOLOGY (NORM); RBC MORPHOLOGY COMMENT NORMAL MORPHOLOGY (NORM); WBC MORPHOLOGY COMMENT NORMAL MORPHOLOGY (NORM)
--- NOTE | 2016-07-09 13:43 | EKG ---
[address] [address] Measurements Intervals [place] Rate: 86 P: 67 DC: 182 QRS: -72 QRSD: 160 T: 30 QT: 403 QTc: 446 Interpretive Statements SINUS RHYTHM RIGHT BUNDLE BRANCH BLOCK RIGHT AXIS DEVIATION, POSSIBLE RVH No previous ECG available for comparison Electronically Signed On 07-09-16 20:34:55 MDT by Brayan Neely [id number]
[2016-07-09 13:53] LABS: BUN/CREATININE RATIO 28.57 (6-20); CALCIUM 8.9 mg/dL (8.7-10.7); SERUM ALBUMIN 3.6 g/dL (3.5-4.8)
--- NOTE | 2016-07-09 13:55 | DI ---
PA /LATERAL CHEST X-RAY, 07/09/2016 12:59 PM : Clinical History: Shortness of breath on exertion. Previous Exam: 03/23/2015. There is no acute soft tissue or bony abnormality. The patient has had extensive surgery in the lower thoracic and lumbar region. The patient has developed cardiomegaly with CHF since the prior exam. Th ere is a patchy density in the left lower lobe posteriorly consistent with atelectasis. If the patien t is febrile, than early pneumonia cannot be excluded. There is centrilobular emphysema with marked p ulmonary arterial hypertension. There are no pulmonary nodules. Readin. Interval development of cardiomegaly with CHF. 2. There is a patchy density in the left lower lobe consistent with atelectasis. If this patient is febrile, than an early left lower lobe pneumonia cannot be excluded. 3. Centrilobular emphysema with pulmonary trail hypertension.
[2016-07-09 14:02] LABS: CREATINE KINASE MB 1.33 NG/ML (0.00-5.00); TROPONIN I 0.019 ng/mL (< 0.040)
[2016-07-09 14:05] LABS: C-REACTIVE PROTEIN 22.1 mg/dL (0.0-0.9)
== END ==
LOC: MOB LAB 13:08
PROVIDERS: ATTEND Physician Assistant
DX: R06.02 Shortness of breath (principal); R07.9 Chest pain, unspecified; R05 Cough; J43.2 Centrilobular emphysema; I50.9 Heart failure, unspecified; I51.7 Cardiomegaly; I45.10 Unspecified right bundle-branch block; R94.31 Abnormal electrocardiogram [ECG] [EKG]
CPT/HCPCS: 36415; 71020; 80053; 82553; 83880; 84484; 85025; 85379; 86140; 93005; 93010

== ENCOUNTER → 2016-07-19 | Outpatient (CLI) | payer OTHER | LOC: MMPC 11:11 | PROVIDERS: ATTEND Internal Medicine | DX: C34.11 Malignant neoplasm of upper lobe, right bronchus or lung (principal); J44.9 Chronic obstructive pulmonary disease, unspecified; I50.42 Chronic combined systolic (congestive) and diastolic (congestive) heart failure; Z85.118 Personal history of other malignant neoplasm of bronchus and lung | CPT/HCPCS: 99214; G0463 ==

== ENCOUNTER → 2016-08-16 | Outpatient (CLI) | payer OTHER ==
[2016-08-16 13:53] LABS: BASOPHILS # (AUTO) 0.08 10*3/UL; BASOPHILS % (AUTO) 0.9 % (0-1); EOSINOPHILS # (AUTO) 0.36 10*3/UL; EOSINOPHILS % (AUTO) 4.1 % (0-8); HEMATOCRIT 48.9 % (42.0-52.0); LYMPHOCYTES # (AUTO) 0.95 10*3/uL; MEAN CORPUSCULAR HEMOGLOBIN 31.2 PG (27-31); MEAN CORPUSCULAR HGB CONC 32.7 g/dL (33-37); MEAN CORPUSCULAR VOLUME 95.3 FL (80-90); MEAN PLATELET VOLUME 10.7 FL (7.4-12.2); MONOCYTES # (AUTO) 0.72 10*3/UL (0.3-0.8); MONOCYTES % (AUTO) 8.2 % (5-15); NEUTROPHILS # (AUTO) 6.67 10*3/UL; NEUTROPHILS % (AUTO) 75.8 % (50-80); RED BLOOD COUNT 5.13 10^6/uL (4.70-6.10)
[2016-08-16 13:58] LABS: CALCIUM 9.1 mg/dL (8.7-10.7); SERUM ALBUMIN 4.1 g/dL (3.5-4.8)
[2016-08-16 15:12] LABS: PLATELET MORPHOLOGY COMMENT NORMAL MORPHOLOGY (NORM); RBC MORPHOLOGY COMMENT NORMAL MORPHOLOGY (NORM); WBC MORPHOLOGY COMMENT NORMAL MORPHOLOGY (NORM)
== END ==
LOC: LAB 13:26
PROVIDERS: ATTEND Radiology Diagnostic Radiology
DX: C34.10 Malignant neoplasm of upper lobe, unspecified bronchus or lung (principal)
CPT/HCPCS: 36415; 80053; 85025; 85610; 85730

== ENCOUNTER → 2016-09-24 | Outpatient (CLI) | payer OTHER ==
[2016-09-24 09:31] LABS: BUN/CREATININE RATIO 27.5 (6-20); CALCIUM 9.4 mg/dL (8.7-10.7)
== END ==
LOC: LAB 08:38
PROVIDERS: ATTEND Internal Medicine
DX: I50.42 Chronic combined systolic (congestive) and diastolic (congestive) heart failure (principal); C34.91 Malignant neoplasm of unspecified part of right bronchus or lung; J44.9 Chronic obstructive pulmonary disease, unspecified; R53.83 Other fatigue; M48.06 Spinal stenosis, lumbar region; M48.04 Spinal stenosis, thoracic region; L57.0 Actinic keratosis
CPT/HCPCS: 17000 ×2; 17003 ×2; 36415; 80048; 83880; 99214; G0463